=== PATIENT | female | born 1930 | race Caucasian/White ===

== ENCOUNTER 2017-05-16 07:51 | Day surgery (SDC) | payer OTHER ==
[~2017-05-16] VITALS: Ht 160 cm; Wt 79.2 kg
[~2017-05-16 07:51] MED LIST: CIPR250T2 PO; ECASA PO; LEVO.1 PO; LEVO100T4 PO; OMEP20CA5 PO; OXYB5TAB PO; OXYC-360 PO; SIMV10 PO; SPIR25; SPIR25TA PO; STOO100C PO; VESI5TAB PO; ZOCO80TA PO; ZOFR8TAB PO
[2017-05-16] MEDS ORDERED: IOHEXOL 350 MG/ML 50 ML BTL (for Cath Lab) OTHER ONE (07:52)
[2017-05-16] MEDS ORDERED: SIMV40TA PO (08:45)
[2017-05-16] MEDS ORDERED: TEMA15CA PO (08:45)
[2017-05-16] MEDS ORDERED: SPIR25TA PO (08:45)
[2017-05-16] MEDS ORDERED: LEVO100T5 PO (08:45)
[2017-05-16] MEDS ORDERED: LISI-519 PO (08:45)
[2017-05-16] MEDS ORDERED: MECL-62 PO (08:45)
[2017-05-16] MEDS ORDERED: OXYB5TAB10 PO (08:45)
[2017-05-16] MEDS ORDERED: ASPI325T PO (08:45)
[2017-05-16 08:47] VITALS: BP 148/72; PULSE 73; RESP 16; TEMP 98.2; O2SAT 95
[2017-05-16 08:52] LABS: AUTOMATED NEUTROPHIL # 4.9 TH/MM3 (1.8-7.7); BASOPHIL % 0.3 % (0.0-2.0); EOSINOPHIL # 0.2 TH/MM3 (0-0.4); EOSINOPHIL % 2.6 % (0.0-4.0); HEMATOCRIT 38.4 % (35.0-46.0); HEMO FLAGS DIFF FINAL; LYMPH % 23.8 % (9.0-44.0); LYMPHOCYTE # 1.9 TH/MM3 (1.0-4.8); MEAN CELL VOLUME 85.9 FL (80.0-100.0); MEAN CORPUSCULAR HEMOGLOBIN 28.4 PG (27.0-34.0); MONO % 9.9 % (0.0-8.0); NEUT % 63.4 % (16.0-70.0); PLATELET COUNT 150 TH/MM3 (150-450); RED BLOOD COUNT 4.47 MIL/MM3 (4.00-5.30); RED CELL DISTRIBUTION WIDTH 13.8 % (11.6-17.2); WHITE BLOOD COUNT 7.8 TH/MM3 (4.0-11.0)
[2017-05-16 08:58] LABS: BACTERIA, URINE MANY /hpf; BLOOD, URINE NEG (NEG); COMMENT (UR) CULTURE INDICATED; CULTURE IF INDICATED CULTURE INDICATED; GLUCOSE,URINE NEG (NEG); KETONE, URINE NEG (NEG); MUCUS URINE FEW /lpf (OCC); NITRITE,URINE POS (NEG); SQUAMOUS EPITHELIAL CELL URINE 4 /hpf (0-5); TRANSITIONAL EPI CELLS, URINE <1 /hpf; URINE COLOR LIGHT-YELLOW (YELLW/STRAW)
[2017-05-16 09:03] LABS: APTT (PATIENT) 29.7 SEC (24.3-30.1); INTERNATIONAL NORMALIZED RATIO 1.1 RATIO; PROTHROMBIN TIME - PATIENT 12.7 SEC (9.8-11.6)
[2017-05-16 09:15] LABS: BICARBONATE 24.6 MEQ/L (21.0-32.0); POTASSIUM 4.3 MEQ/L (3.5-5.1)
[2017-05-16] MEDS ORDERED: diphenhydrAMINE HCL 50 MG CAP PO SCH (09:15)
[2017-05-16] MEDS ORDERED: NS 1000P @30 MLS/HR (KVO) IV SCH (09:15)
--- NOTE | 2017-05-16 10:09 | RADRPT ---
EXAM DATE/TIME: 05/16/2017 09:48 [place] COMPARISON: No previous studies available for comparison. INDICATIONS : Preoperative chest X-Ray. MEDICAL HISTORY : None. SURGICAL HISTORY : None. ENCOUNTER: Subsequent ACUITY: 3 days PAIN SCORE: 0/10 LOCATION: Bilateral chest FINDINGS: The lungs are clear without infiltrate, nodule, or mass. There is no appreciable pleural effusion fo r technique. Heart and mediastinum are unremarkable. Degenerative changes and hypertrophic changes a re seen within the disc space and facets of the thoracic spine. CONCLUSION: No acute cardiopulmonary disease. Rafael Douglas MD on May 16, 2017 at 10:07 Board Certified Radiologist. This report was verified electronically.
--- NOTE | 2017-05-16 11:14 | EKG ---
Date Performed: 05/16/2017 Time Performed: 09:16:34 PTAGE: 86 years EKG: Sinus rhythm . rSr'(V1) - probable normal variant Normal ECG PREVIOUS TRACING : 03/26/2011 19.21 No significant change from previous tracing noted. DOCTOR: Deepak Velazco Interpretating Date/Time 05/16/2017 11:13:49
[2017-05-16] MEDS ORDERED: SODIUM CHLOR 0.9% 1000 ML INJ 1,000 ML IV SCH (11:20)
[2017-05-16] MEDS ORDERED: BACITRACIN OINT 0.9 GM PKT TOP ONE (11:30)
[2017-05-16] MEDS ORDERED: ONDANSETRON HCL 4 MG/2 ML VIAL IV PUSH PRN (11:30)
[2017-05-16] MEDS ORDERED: ATROPINE SULFATE 1 MG/ML VIAL IV PUSH PRN (11:30)
[2017-05-16] MEDS ORDERED: LIDOCAINE HCL 1% 50 ML VIAL INFIL PRN (11:30)
[2017-05-16] MEDS ORDERED: MISC INFORMATION XX ONE (11:30)
--- NOTE | 2017-05-16 11:42 | CATHPROC ---
[facility] HIS Report Study Information Study Number Admission Scheduled Start Study Start [id number] May 16 2017 7:51AM 05/16/2017 May 16 2017 10:19AM [facility] Cardiac Catheterization Admit Source Facility Department Other [facility] - [facility] Physician and Clinical Staff Initial Pk Izaguirre Marble Ceiling InstallerViki Gray,SUDHAKAR Marble Ceiling Installer Caio DE LA FUENTE, William Other Rolf, Garrison,RT(R) Recorder Katherine Lopez,BIOMEDICAL SCIENTIST TECH2 Mary Lou Muir,RT(R) Procedures Performed Procedure Location (Site) Vessel Name Coronary Angiograms LCA Left Coronary Coronary Angiograms RCA Right Coronary Equipment Time Manager Home Improvement Description Size Mfg Part Number Used/Scraped TRANSDUCER, TRUWAVE [id number] 10:58 VIDALES OLVERA * Used W/STOCKODILIACK *[id number] 11:18 C[employer] VASCADE, FR5 CLOSURE SYSTEM FR 5 Used *[id number]-502-10.0- INTRODUCER SET, 11:06 [employer] FR 5 SC-NT-U-SST Used MICROPUNCTURE, STIFFENED *[id number] 534-520T *[id number] 534-521T *[id number] 534-521T *[id number] 10:58 [employer] PACK, CCL CUSTOM * Used *[id number] 10:58 [employer] SUPPORT, ARTERIAL ADULT 55061 *[id number] Used BAND, RADIAL COMPRESSION TR [id number] 11:18 [employer] MEDICAL 24CM Used SHORT 24 *[id number] 10:58 epicurio WIRE, 3MMJ .035 180CM 180CM Used *[id number] 10:49 epicurio WIRE, EXCHANGE 260CM 3MMJ 260CM Used *[id number] 10:58 NAMIC MANIFOLD, 4 PORT * Used *[id number] 10:58 [employer] OMNIPAQUE, 350 MG, 150ML 150ML [id number] Used [id number] 10:58 [employer],WARM AIR CCL * Used *[id number] 11:05 TER[employer] SHEATH, FR5 TERUMO (10CM) FR 5 Used *[id number] SHEATH, FR6 TRANSRADIAL [id number] 10:58 [employer]UM[employer] MEDICAL FR 6 Used SLENDER 10CM *[id number] Equipment Model, Serial, Lot Number and Expiration Data Description Model Number Serial Number Lot Number Expiration Date INTRODUCER SET, [id number] 04-07-2020 MICROPUNCTURE, STIFFENED History: Current Medications Medication Dosage/Unit Route Frequency Last Date/Time Taken ASA Synthroid LISINOPRIL Statins (any) History: Allergies Allergy Reaction codeine NAUSEA History: Risk Factors Family History of Hypertension Dyslipidemia Previous SC Previous Heart Failure Premature CAD Yes Yes No No No Prior Valve Prior PCI Prior CABG Surgery No No No Cerebrovascular Peripheral Artery Chronic Lung On Dialysis Diabetes Disease Disease Disease No Yes Yes No No History: Symptoms/Diagnosis Selection Items SOB History: Stress Tests Stress or Imaging Studies Performed No History: Other Current Smoker Method Quit Packs a Day Years Used Pack Years No Cigarettes 9 Years Ago 1 35 35 Labs Hgb (g/dl) Hct (%) WBC (l/cumm) Platelets (thousands) 11.60-17.00 35.00-51.00 4.00-11.00 150.00-450.00 12.7 38.4 7.8 150 Glucose (mg/dl) BUN (mg/dl) Creatinine (mg/dl) BUN:Creatinine (1:x) 74.00-106.00 7.00-18.00 0.50-1.30 10.00-20.00 94 27 0.7 38.6 Na (meq/l) K (meq/l) Cl (meq/l) CO2 (mmol/L) Ca (mg/dl) 136.00-145.00 3.50-5.10 98.00-107.00 21.00-32.00 8.50-10.10 139 4.3 105 24.6 8.7 PT (sec) PTT (sec) INR (PTT:PT) 9.80-11.60 24.30-30.10 0.90-1.10 12.7 29.7 1.1 CPK-MB (ng/ML) 0.50-3.60 Not Drawn Medication Medication Total Dose (Bolus/Oral) Medication Total Dosage/Unit 1% XYLOCAINE 40 mL FENTANYL 25 mcg RADIAL COCKTAIL 5 mL (Bolus) VERSED 1 mg Medications (Bolus/Oral) Medication Time Given Dosage/Unit Administered By Reason VERSED 05/16/2017 10:51:22 AM 1 mg Viki Madden 1 mg VERSED given in lab by Chano, Viki, RN in Left Antecubital via Peripheral IV. FENTANYL 05/16/2017 10:52:50 AM 25 mcg Viki Madden 25 mcg FENTANYL given in lab by Viki Madden, SUDHAKAR in Left Antecubital via Peripheral IV. Ordered by Pk Ramos. 1% XYLOCAINE 05/16/2017 10:56:19 AM 20 mL Johnson-Julian Pk 20 mL 1% XYLOCAINE given in lab by Pk Ramos in Right Radial via Subcutaneous. Ntg 200mcg Verapamil 2.5mg Heparin RADIAL COCKTAIL 05/16/2017 10:59:53 AM 5 mL (Bolus) Johnson-Julian Pk 2500U 5 mL (Bolus) RADIAL COCKTAIL given in lab by Pk Ramos in Right Radial via Radial. Using NaCl .9. Ordered by Pk Ramos. Reason: Ntg 200mcg Verapamil 2.5mg Heparin 2500U. 1% XYLOCAINE 05/16/2017 11:05:37 AM 20 mL Elizabeth-Julian Pk 20 mL 1% XYLOCAINE given in lab by Pk Ramos in Right Groin via Subcutaneous. Ordered by Pk Castillo. Initial Case Assessment Cardiovascular HR Rhythm NIBP Chest Pain 71 sr 145/53 0 Circulatory - Right Pulses Dorsalis Pedis Femoral Radial 1 2 2 Scale (0,1,2,3,4,d) Circulatory - Left Pulses Dorsalis Pedis Femoral Radial 1 2 Scale (0,1,2,3,4,d) Neurological State Oriented to time-place- Alert Moves all extremities person Respiration - General SpO2 (%) 96 Final Case Assessment Cardiovascular HR Rhythm NIBP Chest Pain 67 sr 98/45 0 Circulatory - Right Pulses Dorsalis Pedis Femoral Radial 2 2 2 Scale (0,1,2,3,4,d) Circulatory - Left Pulses Dorsalis Pedis Femoral Radial 2 2 Scale (0,1,2,3,4,d) Neurological State Oriented to time-place- Alert Moves all extremities person Respiration - General Respiration Rate SpO2 (%) (B/min) 13 97 Chronological Log Time Study Chronological Log 10:18:48 Patient arrived via Bed. 10:18:49 Patient Name, D.O.B, / Armband Verified By R.N. 10:18:49 Consent signed by the physician and the patient and verified by the [facility] staff. 10:18:51 Pre-op and post- op instructions given; patient acknowledges understanding of instructions. 10:18:54 Presedation assessment performed by [employer] [facility] RN. 10:19:08 Patient has been NPO for More than 6Hrs. 10:19:09 Skin Breakdown-left reyes bruise noted 10:19:10 Patient Warmer Placed on the Table. 10:19:11 Nila Prominences Protected 10:19:13 A # 20 IV was noted in the Antecubital (left). Grade = patent 10:19:19 History and physical on the chart or being dictated. 10:23:20 MD arrived. Vitals capture started with the following parameters, Patient=Adult, Interval=5 min, Initial Pr rotydq=716 mmHg, 10:28:41 Deflation Rate=5 mmHg, Cuff placed on Left Arm 10:29:57 HR=72 bpm, ABLY=997/53 mmhg, SpO2=96.0 %, Resp=16 B/min, Pain=0, Navarro=2 Assessment: Initial Case, HR=71 BPM, Rhythm=sr, IMNR=346/53 mmhg, Chest Pain=0 Right Pulses: Mich Ped=1, Femoral=2, Radial=2 10:30:15 Left Pulses: Mich Ped=1, Femoral=2 Neurological: State=Alert, Ox3, LEONE Respiration: SpO2=96 % 10:33:53 Reference ECG taken 10:34:25 HR=77 bpm, RFNV=067/65 mmhg, SpO2=97.0 %, Resp=18 B/min 10:39:28 HR=70 bpm, SLQN=852/60 mmhg, SpO2=96.0 %, Resp=18 B/min 10:43:49 Pressure channel 1 zeroed. 10:44:27 HR=72 bpm, TOLH=077/57 mmhg, SpO2=96.0 %, Resp=20 B/min 10:49:28 HR=69 bpm, LMOP=438/59 mmhg, SpO2=96.0 %, Resp=18 B/min 10:51:22 1 mg VERSED given in lab by Viki Madden, RN in Left Antecubital via Peripheral IV. 25 mcg FENTANYL given in lab by Viki Madden, SUDHAKAR in Left Antecubital via Peripheral IV. Orde red by Rachel, 10:52:50 Pk. 10:54:30 HR=71 bpm, CSMO=129/63 mmhg, SpO2=96.0 %, Resp=20 B/min Time Out. Correct patient, correct procedure,correct physician, ,power injector loaded or not l oaded with contrast with 10:56:15 surgical team present. Time Out Concurred by MD, individual staff and QUICK SKETCH ARTIST in procedure :56:18 Case Start 10:56:19 20 mL 1% XYLOCAINE given in lab by Rachel, Pk in Right Radial via Subcutaneous. 10:59:04 Access site was Radial Artery. right 10:59:29 HR=76 bpm, NVYH=066/60 mmhg, SpO2=94 %, Resp=16 B/min A SHEATH, FR6 TRANSRADIAL SLENDER 10CM FR 6 was advanced into the Fem Art (right) using the Per cutaneous 10:59:37 technique. 5 mL (Bolus) RADIAL COCKTAIL given in lab by Rachel, Pk in Right Radial via Radial. Usin g NaCl .9. Ordered by 10:59:53 Jacek Ramosro. Reason: Ntg 200mcg Verapamil 2.5mg Heparin 2500U. A JR 4.0 INFINITI CATHETER FR 5 was advanced over a wire. OMNIPAQUE, 350 MG, 150ML 150ML was us ed for 11:00:28 injections. Recorded Pressure: Ao, HR=79, Condition=Condition 1 11:01:43 (Aorta) Ao 92/48/68 11:03:36 Unable to cannulate LCA. Catheter was removed 11:04:24 HR=59 bpm, NIBP=73/36 mmhg, SpO2=94 %, Resp=10 B/min 11:04:45 NIBP STAT measurement started. 11:05:01 Aborting radial approach. 11:05:15 HR=58 bpm, NIBP=76/40 mmhg, SpO2=94 %, Resp=15 B/min 20 mL 1% XYLOCAINE given in lab by Rachel, Pk in Right Groin via Subcutaneous. Ordered b nina Ramos, 11:05:37 Pk. 11:05:48 Access site was Right Femoral Artery. A INTRODUCER SET, MICROPUNCTURE, STIFFENED FR 5 was advanced into the Fem Art (right) using the 11:05:55 Percutaneous technique. A SHEATH, FR5 TERUMO (10CM) FR 5 was exchanged in the Fem Art (right). This was necessary in or marija to 11:05:59 accomodate a larger catheter. 11:06:26 An injection in the Fem Art (right) was made through the SHEATH, FR5 TERUMO (10CM) FR 5. A JR 4.0 INFINITI CATHETER FR 5 was advanced over a wire. OMNIPAQUE, 350 MG, 150ML 150ML was us ed for 11:07:14 injections. Recorded Pressure: Ao, HR=58, Condition=Condition 1 11:08:18 (Aorta) Ao 98/43/65 11:08:31 The RCA was injected and visualized at various angles. OMNIPAQUE, 350 MG, 150ML 150ML used . After removing the current catheter a JL 4.0 INFINITI CATHETER FR 5 was advanced over a WIRE, 3 MMJ .035 180CM 11:08:53 180CM. After removing the current catheter a JL 5.0 INFINITI CATHETER FR 5 was advanced over a WIRE, 3 MMJ .035 180CM 11:09:33 180CM. Unable to cannulate LCA 11:09:49 HR=74 bpm, ENCX=627/50 mmhg, SpO2=94 %, Resp=13 B/min 11:10:36 The LCA was injected and visualized at various angles. OMNIPAQUE, 350 MG, 150ML 150ML used . 11:14:24 HR=76 bpm, LEOS=121/55 mmhg, SpO2=95 %, Resp=15 B/min 11:15:57 Catheter was removed VASCADE, FR5 CLOSURE SYSTEM FR 5 placement in the Fem Art (right) Hematoma noted, holding manua l pressure, 11:17:02 pt c/o rt groin and right radial site. 11:18:42 Case End 11:19:27 HR=73 bpm, ESSW=833/51 mmhg, SpO2=95.0 %, Resp=11 B/min 11:24:26 HR=67 bpm, TVCB=281/53 mmhg, SpO2=97.0 %, Resp=13 B/min 11:26:00 Activated Clotting Time Drawn 11:29:23 HR=65 bpm, NIBP=98/45 mmhg, SpO2=98.0 %, Resp=24 B/min 11:35:23 ACT (Normal Range 90-180) = 229 Radial Compression Device Used. 11 mLs of air placed in BAND, RADIAL COMPRESSION TR SHORT 24 24 CM. Affected 11:35:42 hand 96 % O2 saturation. 11:36:54 Hematoma resolved, Sterile dressing applied to right groin site 11:37:31 Cine recording checked. Assessment: Final Case, HR=67 BPM, Rhythm=sr, NIBP=98/45 mmhg, Chest Pain=0 Right Pulses: Mich Ped=2, Femoral=2, Radial=2 11:42:37 Left Pulses: Mich Ped=2, Femoral=2 Neurological: State=Alert, Ox3, LEONE Respiration: Resp=13 B/min, SpO2=97 % 11:42:41 Patient moved to bed 11:43:50 Patient transported to DOCU. End Study - Contrast Media Used In Study Contrast Total Opened (mL) Total Used (mL) Total Wasted (mL) Omnipaque 40 40 0 End Study - Maximum Contrast Load Max Contrast Load (mL) 565.6 End Study - Radiation Exposure Fluoro Time (minutes) 6.2 End Study - Sheaths Sheaths Pulled By Sheath Hold Time (min) Pk Ramos End Study - Patient Disposition Complications Transferred To Interventional Outcome No Telemetry Bed No attempt made
--- NOTE | 2017-05-16 12:24 | ECHRPT ---
Indication: CONCLUSIONS Normal left ventricular size and wall thickness. The left ventricular systolic function is normal wi th an estimated ejection fraction in the range of 60-65%. Left ventricular diastolic function parameters a re normal. Normal left ventricular size. Moderate concentric left ventricular hypertrophy. No regional wall motion abnormalities are present. Mitral annular calcification is present. Mild mitral valve regurgitation. Moderate thickening of the mitral valve leaflets. Severe thickening of the aortic valve leaflets. Diffuse calcification of the aortic valve. Severe aortic valve stenosis. Moderate aortic valve regurgitation. Aortic valve area is 0.55 cm. Aortic valve mean gradient is 64 mmHg. There is trace tricuspid valve regurgitation. The estimated pulmonary arterial pressure is 28 mmHg. BP: / HR: Rhythm: Sinus MEASUREMENTS (Male / Female) Normal Values Technical Quality:Good 2D ECHO LVOT Diameter 2.0 cm M-MODE LV Diastolic Diameter MM 3.9 cm 4.2 - 5.9 / 3.9 - 5.3 cm LV Systolic Diameter MM 2.5 cm LV Ejection Fraction MM Teich 66.5 % IVS Diastolic Thickness MM 1.3 cm 0.6 - 1.0 / 0.6 - 0.9 cm LVPW Diastolic Thickness MM 1.3 cm 0.6 - 1.0 / 0.6 - 0.9 cm LV Relative Wall Thickness MM 0.7 0.24 - 0.42 / 0.22 - 0.42 LV Mass Index MM 97.1 g/m 49 - 115 / 43 - 95 g/m Aortic Root Diameter MM 2.3 cm LA Systolic Diameter MM 3.3 cm LA Ao Ratio MM 1.4 AV Cusp Separation MM 0.8 cm DOPPLER AV Peak Velocity 521.0 cm/s AV Peak Gradient 108.6 mmHg AV Mean Gradient 64.0 mmHg AV Velocity Time Integral 150.5 cm AI Peak Velocity 445.0 cm/s AI Peak Gradient 79.2 mmHg AI Pressure Half Time 385.5 ms LVOT Peak Velocity 102.0 cm/s LVOT Peak Gradient 4.2 mmHg LVOT Velocity Time Integral 26.2 cm AV Area Cont Eq vti 0.5 cm AV Area Cont Eq pk 0.6 cm MV Peak Velocity 157.0 cm/s MV Peak Gradient 9.9 mmHg MV Mean Velocity 88.1 cm/s MV Mean Gradient 4.0 mmHg MV Area PHT 2.8 cm Mitral E Point Velocity 105.0 cm/s Mitral A Point Velocity 162.0 cm/s Mitral E to A Ratio 0.6 LV E' Lateral Velocity 4.1 cm/s Mitral E to LV E' Lateral Ratio 25.7 LV E' Septal Velocity 5.0 cm/s Mitral E to LV E' Septal Ratio 21.1 TR Peak Velocity 230.0 cm/s TR Peak Gradient 21.2 mmHg PV Peak Velocity 66.4 cm/s PV Peak Gradient 1.8 mmHg FINDINGS LEFT VENTRICLE Normal left ventricular size and wall thickness. The left ventricular systolic function is normal wi th an estimated ejection fraction in the range of 60-65%. Left ventricular diastolic function parameters a re normal. Normal left ventricular size. Moderate concentric left ventricular hypertrophy. No regional wall motion abnormalities are present. RIGHT VENTRICLE Normal right ventricular size and systolic function. LEFT ATRIUM The left atrial size is normal. RIGHT ATRIUM The right atrial size is normal. ATRIAL SEPTUM Normal atrial septal thickness without atrial level shunting by limited color doppler interrogation. AORTA The aortic root and proximal ascending aorta are normal in size on limited imaging. MITRAL VALVE Mitral annular calcification is present. Mild mitral valve regurgitation. Moderate thickening of the mitral valve leaflets. AORTIC VALVE Severe thickening of the aortic valve leaflets. Diffuse calcification of the aortic valve. Severe aortic valve stenosis. Moderate aortic valve regurgitation. Aortic valve area is 0.55 cm. Aortic valve mean gradient is 64 mmHg. TRICUSPID VALVE There is trace tricuspid valve regurgitation. The estimated pulmonary arterial pressure is 28 mmHg. PULMONARY VALVE The pulmonary valve is not well visualized. VESSELS The inferior vena cava is normal in size. PERICARDIUM No pericardial effusion. Pk Ramos MD (Electronically Signed) Final Date:16 May 2017 12:23
--- NOTE | 2017-05-16 12:53 | MA ---
cc: DANA SPICER DATE: 05/16/2017. PROCEDURE PERFORMED: 1. Left heart catheterization. 2. Selective right and left coronary angiography, left common femoral artery angiography. INDICATIONS FOR THE PROCEDURE: Preoperative evaluation for aortic valve replacement. DESCRIPTION OF THE PROCEDURE IN DETAIL: Consent signed. The patient was brought into the cardiac catheterization laboratory in a fasting state. The right wrist and groin were prepped and draped in sterile fashion using 1% lidocaine for local anesthesia. A micropuncture and 6-[place] sheath was inserted in the right radial artery. Antispasmodic cocktail given then selective right coronary artery angiography was tried however it was not successful even tortuosity of the ascending aorta and thus the approach was changed to a right femoral approach. Then using 1% lidocaine and a micropuncture kit a 5-[place] sheath was inserted into the right common femoral artery. A right common femoral artery angiography was performed to confirm for position of the sheath. Then selective right and left coronary angiography was performed with a JR-4 and JL-5 diagnostic catheters. Angiography was taken in multiple views. The patient tolerated the procedure well without complications. Estimated blood loss less than 30 mL. Total contrast used was 50 cc. The right groin access site was closed with a basket device. The right wrist was closed with a TR band. RESULTS: 1. Aortic pressure was 98/43 with a mean of 65. ANGIOGRAPHY: 1. Right coronary artery: The right coronary artery is a dominant vessel. It has no significant coronary artery disease. It is mildly calcified and has a mid 30% lesion. The PDA and PLB branches are patent. 2. Left main: The left main is short and patent with no obstructive coronary artery disease. 3. Left circumflex: The left circumflex artery is giving off three OM vessels. There is mild calcification in the circumflex however the rest of the vessel is patent with DEANGELO III flow and no obstructive coronary artery disease. 4. Left anterior descending: The left anterior descending is a transapical vessel. It has one prominent diagonal vessel. The LAD and the diagonals are patent with DEANGELO III flow and no obstructive coronary artery disease. CONCLUSIONS: 1. Nonobstructive coronary artery disease. 2. Severe symptomatic aortic stenosis. RECOMMENDATIONS: 1. The patient will continue the TAVR workup. 2. TAVR CTA, PFTs, STS score and frailty and she will be seen by CT surgery 3. DOCU for post catheterization care and if stable, 4. Discharged home today. MD CYRUS Patel/JORDAN /11:22 AM /12:33 PM [place]
--- NOTE | 2017-05-16 13:41 | MB ---
cc: DANA SPICER SOHIT K. MD DATE OF CONSULTATION 05/16/[address] Dana Spicer REASON FOR CONSULTATION Aortic stenosis HISTORY Mrs. Mera is a very pleasant 86-year-old lady with a known history of hypertension, progressive symptomatic, severe aortic stenosis, peripheral artery disease, thrombocytopenia, and senile her purpura who presents with progressive symptoms of shortness of breath with minimal exertion. The patient has been evaluated and has undergone further workup including an echocardiogram which revealed severe aortic stenosis with peak gradient of 103 mmHg, mean gradient of 52 mmHg and calculated valve area 0.7 cm2. She also underwent a cardiac catheterization today which revealed nonocclusive right coronary disease with 40% stenosis. I am now being consulted for surgical opinion and evaluation for open versus TAVR surgical replacement. At the present time, she is hemodynamically stable and comfortable, however, with minimal exertion, she gets easily short of breath. PAST MEDICAL HISTORY Significant for: 1. Aortic stenosis as described above. 2. Hyperlipidemia 3. Hypothyroidism 4. Peripheral arterial disease 5. Senile purpura 6. Thrombocytopenia 7. Hypertension PAST SURGICAL HISTORY Remarkable for shoulder surgery. MEDICATIONS ON ADMISSION Include: 1. Aspirin 2. Levothyroxine 3. Lisinopril 4. Meclizine 5. Oxybutynin 6. Simvastatin 7. Spironolactone 8. Temazepam ALLERGIES THE PATIENT REPORTS ALLERGIES TO CODEINE. FAMILY HISTORY Noncontributory SOCIAL HISTORY Denies any history of alcohol use, or illicit drug use. She is a former smoker and quit in 2007. REVIEW OF SYSTEMS As above, all other parameters negative. PHYSICAL EXAM On physical examination today she is 5 foot 3 inches tall, weighs 177 pounds. VITAL SIGNS: Blood pressure 148/72 with a heart rate of 72 and regular, respiratory rate is 16 and she is afebrile. HEENT: Normocephalic, atraumatic. Pupils are round and reactive. Extraocular muscles intact. NECK: No cervical lymphadenopathy, carotid bruits or JVD. CARDIOVASCULAR: Regular rate rhythm. Normal S1-S2 without gallops or rubs. She does have a 04/06 systolic ejection murmur best heard at the right parasternal border. LUNGS: Clear to auscultation bilaterally with good exchange. ABDOMEN: Soft, nontender, and nondistended with no active bowel sounds. No hepatosplenomegaly. EXTREMITIES: Bilateral pedal pulses are nonpalpable, however, the feet are warm and with good capillary refill. NEUROLOGIC: Intact with no focal deficits. SKIN: Intact. IMPRESSION 1. Severe symptomatic aortic stenosis. 2. Congestive heart failure [place] [employer] classification II 3. Hypothyroidism 4. Hypertension 5. Hyperlipidemia 6. Senile purpura 7. Thrombocytopenia PLAN The clinical, angiographic, as well as echo findings were discussed in detail with the patient today. Therapeutic options available including surgical versus percutaneous valve therapy was discussed. Given her STS mortality score of 3.78% with a morbidity or mortality of 17.5%, her advanced age, as well as her medical comorbidities, I think she will maximally benefit from TAVR consideration. She is at intermediate risk for surgical therapy. To that effort, we will proceed with a TAVR workup including a CTA, as well as a second opinion from Dr. Michel. She will follow up with him on the outpatient basis for a second opinion and will decide on a definitive TAVR day depending upon the results of all the pending studies. Thank you for allowing me to participate in the care of this patient. Shyann CARDENAS /12:23 PM /1:16 PM MTDRamon
--- NOTE | 2017-05-21 09:31 | RSPPFT ---
DATE OF PROCEDURE: 05/16/17 COMMENTS: Spirometry with FVC of 2.4, FEV1 of 1.7, FEV1/FVC ratio at 72%. Post-bronchodilator study was not performed. IMPRESSION: 1. Moderately severe airways obstruction.
== END 2017-05-16 16:15 | disposition home or self-care (01) ==
LOC: HDOC 07:51 → HDIC 07:52 → HDOC 16:15
PROVIDERS: ATTEND Radiology Vascular & Interventional Radiology
DX: I35.0 Nonrheumatic aortic (valve) stenosis (principal); I25.10 Atherosclerotic heart disease of native coronary artery without angina pectoris; I73.9 Peripheral vascular disease, unspecified; D69.6 Thrombocytopenia, unspecified; B96.20 Unspecified Escherichia coli [E. coli] as the cause of diseases classified elsewhere; E03.9 Hypothyroidism, unspecified; D69.2 Other nonthrombocytopenic purpura; I50.9 Heart failure, unspecified; I11.0 Hypertensive heart disease with heart failure; Z87.891 Personal history of nicotine dependence; Z79.82 Long term (current) use of aspirin; E78.5 Hyperlipidemia, unspecified; Z79.899 Other long term (current) drug therapy
CPT/HCPCS: 71020; 80048; 81001; 82040; 85002; 85025; 85610; 85730; 86850; 86900; 86901; 87077; 87086; 87186; 87641; 93005; 93306; 93454; 94010; C1760; C1769; C1893; G0269; J1644; J2250; J3010; Q9967

== ENCOUNTER → 2017-06-05 | Outpatient (CLI) | payer SELFPAY ==
[~2017-06-05] MED LIST changes: +ASPI325T PO; +ASPI81CH25 PO; -CIPR250T2 PO; +IOHEXOL 350 MG/ML 10 ML VIAL (for RAD DIAG) IVCONTRAST ONE; -LEVO.1 PO; +LEVO100T5 PO; +LISI-519 PO; +MECL-62 PO; -OMEP20CA5 PO; +OXYB5TAB10 PO; -OXYC-360 PO; +PLAV75TA29 PO; +SIMV40TA PO; -SPIR25; -STOO100C PO; +TEMA15CA PO; -VESI5TAB PO; -ZOCO80TA PO; -ZOFR8TAB PO
--- NOTE | 2017-06-06 10:54 | RADRPT ---
EXAM DATE/TIME: 06/05/2017 17:15 [facility] COMPARISON: No previous studies available for comparison. INDICATIONS : Evaluate for valve replacement surgery. IV CONTRAST: 100 cc Omnipaque 350 (iohexol) IV RADIATION DOSE: 43.36 CTDIvol (mGy) MEDICAL HISTORY : Cardiovascular disease. Hypertension. SURGICAL HISTORY : None. ENCOUNTER: Initial ACUITY: 1 day PAIN SCALE: 0/10 LOCATION: chest TECHNIQUE: Volumetric scanning was performed using a multi-row detector CT scanner. The data was post processed with a variety of visualization algorithms including full volume maximum intensity projection, multi -planar sliding thin slab reformation, curved planar reformation, and surface rendering techniques. Using automated exposure control and adjustment of the mA and/or kV according to patient size, radiat ion dose was kept as low as reasonably achievable to obtain optimal diagnostic quality images. DIC OM format image data is available electronically for review and comparison. FINDINGS: CARDIAC: The coronary system is right dominant. Coronary artery calcifications are present 3There are no microcalcifications. There is no pericardial effusion AORTIC ROOT/VALVE: 3 cusps are evident with calcifications. The aortic root measures 3.2 CM. Mid thoracic aorta measures 2.4 with no calcifications. 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 No evidence of aneurysm, mural thrombus, dissection, mural calcification, or stenosis. ABDOMINAL AORTA: No evidence of aneurysm, mural thrombus, dissection, mural calcification, or stenosis. CELIAC ARTERY: Celiac artery is widely patent. SMA: Superior mesenteric artery is widely patent. RIGHT RENAL ARTERY: Right renal artery is widely patent. LEFT RENAL ARTERY: Left renal artery is widely patent. RIGHT COMMON ILIAC: No evidence of aneurysm, mural thrombus, dissection, mural calcification, or stenosis. The common fe moral measures 7. LEFT COMMON ILIAC: No evidence of aneurysm, mural thrombus, dissection, mural calcification, or stenosis. The common fe moral measures 6. THORAX: There is minimal parenchymal scarring in the bases but no evidence of nodule. ABDOMEN: The liver and spleen are normal in size and no focal defects are identified. There are multiple stone s within the gallbladder without wall thickening or pericholecystic fluid the largest measuring 5 mm PELVIS: Examination of the pelvis demonstrates no evidence of free fluid or pelvic mass. No abnormally enlarg ed inguinal or retroperitoneal lymph nodes are present. The bladder is unremarkable. There is diverti culosis without evidence of diverticulitis. CONCLUSION: 1. Vascular measurements as above 2. Cholelithiasis 3. 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 This report was verified electronically.
== END ==
LOC: HRAD 16:09
PROVIDERS: ATTEND Radiology Vascular & Interventional Radiology
DX: I25.10 Atherosclerotic heart disease of native coronary artery without angina pectoris (principal); I10 Essential (primary) hypertension
CPT/HCPCS: 74174; Q9967

== ENCOUNTER 2017-06-11 05:16 | Inpatient (IN) | payer OTHER, MEDICARE ==
[2017-06-11] VITALS (9 sets, daily range): BP systolic 105–165; BP diastolic 44–76; PULSE 70–81; RESP 14–18; TEMP 94.4–99.2; O2SAT 94–99
[~2017-06-11] VITALS: Ht 160 cm; Wt 82.0 kg
[~2017-06-11 05:16] MED LIST changes: -ASPI81CH25 PO; -IOHEXOL 350 MG/ML 10 ML VIAL (for RAD DIAG) IVCONTRAST ONE; -PLAV75TA29 PO
[2017-06-11] MEDS ORDERED: METOPROLOL TARTRATE 25 MG TAB PO PRN (06:00)
[2017-06-11] MEDS ORDERED: SODIUM CHLORID 0.9% 500 ML IV SCH (06:00)
[2017-06-11] MEDS ORDERED: ASPIRIN 325 MG TAB PO ONE (06:00)
[2017-06-11] MEDS ORDERED: CHLORHEXIDINE GLUCONATE 2 % 1 PACK (2 CLOTHS) TOPICAL PRN (06:00)
[2017-06-11] MEDS ORDERED: INSULIN HUMAN REGULAR 1,000 UNITS/10 ML VIAL SQ PRN (06:00)
[2017-06-11] MEDS ORDERED: POVIDONE IODINE 5% (ANTISEPSIS KIT) 4 APPLICATIONS EACH NARE PRN (06:00)
[2017-06-11] MEDS ORDERED: SODIUM CHLORID 0.9% 500 ML IV PRN (06:00)
[2017-06-11] MEDS ORDERED: MUPIROCIN 2% OINT 1 APPLIC/GM SYR NASAL ONE (06:00)
[2017-06-11] MEDS ORDERED: LACTATED RINGER'S 1000 ML IV PRN (06:00)
[2017-06-11] MEDS ORDERED: POVIDONE IODINE 5% (ANTISEPSIS KIT) 4 APPLICATIONS TOPICAL ONE (06:00)
[2017-06-11] MEDS ORDERED: SODIUM CHLOR 0.9% 1000 ML INJ 1,000 ML IV SCH ×2 (06:15→09:46)
[2017-06-11] MEDS ORDERED: CHLORHEXIDINE GLUCONATE 2 % 1 PACK (2 CLOTHS) TOPICAL ONE (06:15)
[2017-06-11 06:16] LABS: AUTOMATED NEUTROPHIL # 2.6 TH/MM3 (1.8-7.7); BASOPHIL % 0.7 % (0.0-2.0); EOSINOPHIL # 0.2 TH/MM3 (0-0.4); EOSINOPHIL % 4.8 % (0.0-4.0); HEMATOCRIT 35.2 % (35.0-46.0); HEMO FLAGS DIFF FINAL; LYMPH % 29.2 % (9.0-44.0); LYMPHOCYTE # 1.5 TH/MM3 (1.0-4.8); MEAN CELL VOLUME 85.8 FL (80.0-100.0); MEAN CORPUSCULAR HEMOGLOBIN 29.3 PG (27.0-34.0); MEAN CORPUSCULAR HGB CONC 34.1 % (32.0-36.0); MONO % 12.4 % (0.0-8.0); NEUT % 52.9 % (16.0-70.0); PLATELET COUNT 135 TH/MM3 (150-450); RED CELL DISTRIBUTION WIDTH 13.9 % (11.6-17.2)
[2017-06-11 06:27] LABS: BICARBONATE 25.8 MEQ/L (21.0-32.0); POTASSIUM 3.7 MEQ/L (3.5-5.1)
[2017-06-11 06:50] LABS: APTT (PATIENT) 30.3 SEC (24.3-30.1); INTERNATIONAL NORMALIZED RATIO 1.2 RATIO; PROTHROMBIN TIME - PATIENT 13.2 SEC (9.8-11.6)
[2017-06-11] MEDS ORDERED: HEPARIN-NS/PF INJ 2,500 ML ONE (06:53)
[2017-06-11] MEDS ORDERED: HEPARIN SODIUM - IV 10,000 UNITS/10 ML VIAL ONE ×2 (07:15→09:30)
[2017-06-11] MEDS ORDERED: HEPARIN SODIUM - SQ 10,000 UNITS/ML VIAL ONE (07:15)
[2017-06-11] MEDS ORDERED: CUSTODIOL HTK IRR SOLN 0 ML ONE (07:16)
[2017-06-11] MEDS: ceFAZolin 2 GM PREMIX 50 ML IV SCH (07:30)
--- NOTE | 2017-06-11 08:39 | MH ---
cc: DANA SPICER DATE OF ADMISSION: 06/11/2017 DATE OF : 1930 REASON FOR ADMISSION Elective replacement of aortic valve. HISTORY OF PRESENT ILLNESS 86-year-old female referred by Dr. Deepak Velazco with past medical history significant for hypertension, hyperlipidemia, peripheral vascular disease, thrombocytopenia, severe hard-of- hearing and severe symptomatic aortic stenosis with preserved ejection fraction. The patient has been experiencing for the last couple of weeks worsening dyspnea on minimal exertion. This dyspnea is also associated with angina. The patient was referred to the [facility] for evaluation. She was fully evaluated by the cardiac team and concluded the patient was intermediate risk for open AVR and a candidate for TAVR. The patient had an echocardiogram showing a preserved ejection fraction of 60% with some LVH, a trileaflet aortic valve which is calcified, aortic valve velocity across the valve of 5.2, mean gradient of 64, and calculated aortic valve area of 0.55. After full evaluation she was deemed a candidate for TAVR and scheduled to undergo TAVR today. REVIEW OF SYSTEMS Negative except for what is mentioned in the HPI. PAST MEDICAL HISTORY 1. Severe symptomatic aortic stenosis. 2. Hypertension. 3. Hypothyroidism. 4. Hyperlipidemia. 5. Peripheral vascular disease. 6. Thrombocytopenia. 7. Severe guan-ni-cooavrg. 8. Chronic diastolic heart failure MEDICATIONS Home medications reviewed. FAMILY HISTORY Noncontributory. SOCIAL HISTORY Denies alcohol use, tobacco abuse or illicit drug use. PHYSICAL EXAMINATION VITAL SIGNS: Temperature 97, respiratory rate 18, heart rate 70 beats per minute, blood pressure 130/40, O2 sats 100% on room air. GENERAL: Awake, alert, oriented x3, in no acute distress. NECK: No JVD. No carotid bruits. HEART: Regular rate and rhythm. She has a 3/6 systolic ejection murmur best heard in the aortic focus. There are no gallops or rubs. LUNGS: Clear to auscultation bilaterally, however, poor inspiratory effort. ABDOMEN: Benign. EXTREMITIES: No cyanosis or edema. Pulses throughout. LABORATORY Creatinine 0.7. H&H of 12.7 and 38.4, platelet count 150. Regarding TAVR evaluation STS score is 3.72, frailty 2/4. EKG: Sinus rhythm with an incomplete right bundle branch block. PFTs: Moderate obstructive airway disease. Echocardiogram: Aortic valve velocity of 5.2, mean gradient of 64, calculated valve area of 0.55, ejection fraction of 60%. There is some AR noted as well as LVH. The aortic valve is a trileaflet aortic valve which is calcified at the leaflets. The left heart cath shows no obstructive coronary artery disease. CTA analysis shows a short annulus diameter of 23.4, a long annulus diameter 26.6 and annular diameter of 496.9, perimeter of 79.4. She has again calcium in the leaflets. There is no LVOT calcification. The aortic valve is a trileaflet valve. The sinus of Valsalva diameter is 30.6. The STA is 25.9. The coronary height on the left is 12.9 and the right coronary height is 16.0. Iliacs: minimal luminal diameter on the right is 5.5 and on the left is 5.6. ASSESSMENT 86-year-old female admitted for elective percutaneous replacement of the aortic valve in the setting of severe symptomatic aortic stenosis, [place] [employer] Class II, acute of chronic diastolic heart failure and angina. Past medical history significant for hypertension, hyperlipidemia, thrombocytopenia and peripheral arterial disease. TAVR work-up mentioned above. The risks and benefits of TAVR include but are not limited to complete heart block needing pacemaker, bleeding, infection, acute kidney injury, stroke, emergent open heart surgery and have been explained to the patient. The patient understands the risks and benefits and is willing to proceed. PLAN Right transfemoral valve access with implantation of a 29 mm Medtronic Evolut valve. MD CYRUS Patel/DEV /7:59 AM /8:11 AM ROLAND
[2017-06-11] MEDS ORDERED: PROTAMINE SULFATE 50 MG/5 ML VIAL ONE (09:02)
[2017-06-11] MEDS ORDERED: IOHEXOL 350 MG/ML 100 ML BTL (for RAD DIAG) IVCONTRAST ONE (09:15)
--- NOTE | 2017-06-11 09:25 | PD.OP ---
cc: Pk Ramos MD; Shyann Shafer MD; Ivett Michel MD; Luis Fernando Spear MD Operative Report Date of Surgery: Jun 11, 2017 Preoperative Diagnosis: (1) Aortic stenosis (2) Diastolic heart failure due to valvular disease Postoperative Diagnosis: same Procedure: Transcatheter aortic valve replacement with a 29 Corevalve Evolut tissue valve Balloon aortic valvuloplasty with a 22 True Balloon Percutaneous right femoral artery access with Perclose closure Percutaneous left femoral and vein access with Perclose closure of the artery Fluoroscopy Diagnostic aortography Anesthesia: Dr. Flores Surgeon: Ivett Michel Co-surgeon - Dr. Johnson Central Service Tech(s): Dr. Rainer Shafer Operation and Findings: The risks, benefits, complications, treatment options, and expected outcomes were discussed with the patient. The possibilities of reaction to medication, pulmonary aspiration, perforation of viscus, bleeding, recurrent infection, the need for additional procedures, failure to diagnose a condition, and creating a complication requiring transfusion or operation were discussed with the patient. The patient concurred with the proposed plan, giving informed consent. The site of surgery properly noted/marked. The patient was taken to the hybrid operating room, identified as [place]serrat Mera and the procedure verified as Transcatheter Aortic Valve Replacement. A Time Out was held and the above information confirmed. Standard monitoring lines and Marroquin catheter were placed. General anesthesia was induced. The patient was prepped and draped in a sterile fashion. Initially, left femoral arterial and venous access was acquired using a Seldinger percutaneous technique. The details of this procedure were dictated under separate note by cardiology. Once a pigtail was positioned in the aortic annulus and a temporary transvenous pacemaker wire was placed in the right ventricular apex and tested, the patient was heparinized such that the ACT was greater than 300 second. The right femoral artery was accessed using a needle followed by a guidewire under fluoroscopic guidance. Perclose devices were deployed for later closure. Serial dilators were used to dilate the right femoral artery to 16 Prydeinig caliber. The Cook sheath was then inserted up to the abdominal aorta. Arch aortography was performed to define the implant view. A balloon aortic valvuloplasty was then performed using a 22 x 6 balloon with the patient being paced at 180 beats per minute. A 29 Corevalve Evolut transcatheter aortic valve was then positioned in the annulus and deployed with the patient being paced at 120 beats per minute. Following deployment, the valve apparatus was withdrawn and arch aortography and REUBEN were performed to assess the valve. The valve had no significant perivalvular leaks. The sheath was withdrawn under direct vision and the right femoral artery was secured with the Perclose devices. The left femoral artery was handled in a similar manner. Protamine was administered. Sterile dressings were placed. At the end of the operation , all sponge, instruments, and needle counts were correct. The patient was transferred to the CICU in stable condition. Findings: 29 Corevalve deployed without incident Implants: 29 Corevalve Complications: none Disposition: To CVICU in stable condition Ivett Michel MD Jun 11, 2017 09:25
--- NOTE | 2017-06-11 09:39 | PD.CONS ---
[facility] Service Critical Care Medicine Consult Requested By Dr. Marshall Reason for Consult medical management of comorbid conditions Primary Care Physician No Primary Care Physician History of Present Illness This is an 86-year-old female with a history of hypertension, hypothyroidism, hyperlipidemia, peripheral vascular disease, thrombocytopenia, and severe aortic stenosis who presents for elective percutaneous transcatheter aortic valve replacement. Her intraoperative procedure was uncomplicated through bilateral groin access. She arrives to the CVICU arousing from anesthesia in stable condition. No additional information is obtainable from the patient due to her arousing from anesthesia and somnolence. Review of Systems ROS Limitations: Clinical Condition, Altered Mental Status ROS Arousing from anesthesia Past Family Social History Allergies: Coded Allergies: codeine (Unverified Adverse Reaction, Intermediate, NAUSEA, 04/22/17) Past Medical History Severe symptomatic aortic stenosis Hypertension Hypothyroidism Hyperlipidemia Peripheral vascular disease Thrombocytopenia Hearing loss Past Surgical History Right knee surgery delivery Reported Medications Aspirin 325 Mg Tab 325 Mg PO DAILY Temazepam 15 Mg Cap 15 Mg PO HS PRN Spironolactone 25 Mg Tab 25 Mg PO DAILY Simvastatin 40 Mg Tab 40 Mg PO BID Ditropan (Oxybutynin Chloride) 5 Mg Tab 5 Mg PO Q12HR Meclizine (Meclizine HCl) 25 Mg Tab 25 Mg PO DIRECTED PRN Lisinopril 5 Mg Tab 5 Mg PO DAILY Levothyroxine (Levothyroxine Sodium) 100 Mcg Tab 100 Mcg PO DAILY Active Ordered Medications See MAR Family History Reviewed and found to be noncontributory to her acute illness Social History Denies EtOH, tobacco, drugs of abuse Physical Exam Vital Signs Vital Signs Date Time Temp Pulse Resp B/P (MAP) Pulse Ox O2 Delivery O2 Flow Rate FiO2 06/11/17 05:51 97.6 70 18 133/67 (89) 96 Physical Exam GENERAL: Elderly female, lying in bed, arousing from anesthesia HEENT: Normocephalic. Atraumatic. Pupils equal, round, reactive, conjugate. Mucous membranes are moist NECK: Trachea is midline. There is no JVD. Right IJ introducer sheath with transvenous pacer in place, dressing intact, site appears clean CHEST: Unlabored. Equal chest rise. CARDIOVASCULAR: Normal rate, regular rhythm. Sinus by telemetry. Not currently paced. Backup pacer is VVI rate of 50 ABDOMEN: Soft, nontender, nondistended. No guarding. MUSCULOSKELETAL: Pulses 2+. No peripheral edema. Distal pulses dopplerable bilaterally. Bilateral groin sites are clean, dry, dressings intact. No evidence hematoma NEUROLOGICAL: RASS -2. Arousing from anesthesia. Nonfocal. Moves all extremities. Laboratory Laboratory Tests Test 06/11/17 05:40 White Blood Count 5.0 Red Blood Count 4.10 Hemoglobin 12.0 Hematocrit 35.2 Mean Corpuscular Volume 85.8 Mean Corpuscular Hemoglobin 29.3 Mean Corpuscular Hemoglobin Concent 34.1 Red Cell Distribution Width 13.9 Platelet Count 135 Mean Platelet Volume 8.0 Neutrophils (%) (Auto) 52.9 Lymphocytes (%) (Auto) 29.2 Monocytes (%) (Auto) 12.4 Eosinophils (%) (Auto) 4.8 Basophils (%) (Auto) 0.7 Neutrophils # (Auto) 2.6 Lymphocytes # (Auto) 1.5 Monocytes # (Auto) 0.6 Eosinophils # (Auto) 0.2 Basophils # (Auto) 0.0 CBC Comment DIFF FINAL Differential Comment Prothrombin Time 13.2 Prothromb Time International Ratio 1.2 Activated Partial Thromboplast Time 30.3 Blood Urea Nitrogen 21 Creatinine 0.67 Random Glucose 95 Calcium Level 8.6 Sodium Level 142 Potassium Level 3.7 Chloride Level 109 Carbon Dioxide Level 25.8 Anion Gap 7 Estimat Glomerular Filtration Rate 84 Result Diagram: 06/11/1740 06/11/17 0540 Assessment and Plan Assessment and Plan Assessment: 86yF with htn, pvd, severe symptomatic aortic stenosis now POD 0 s/ p TAVR. Plan: s/p TAVR 06/11 with right iliac groin access - anticoagulation plan per Dr. marshall - frequent neurovascular checks - close uop monitoring - OOB after flat time. HTN - goal SBP < 180 - hold lisinopril tonight, plan to restart tomorrow Hyperlipidemia - restart home statin Hypothyroidism - restart synthroid Post-operative atelectasis - prn nebs - wean o2 by co for goal spo2 > 92% - aggressive pulmonary toilet. Could consider transitioning out of ICU if she remains pathway overnight. Code Status Full Code Discussed Condition With Dr. Marshall, Manish Becerra MD Jun 11, 2017 09:39
--- NOTE | 2017-06-11 09:44 | PD.PROCEDR ---
Procedure Note Procedure Procedure: Transesophageal Echocardiography Diagnosis: Severe aortic stenosis Indications: For perioperative planning for transcatheter aortic valve replacement Consent: Obtained Anesthesia: Gen. endotracheal anesthesia Description of the Procedure: The patient was sedated and mechanically ventilated. The echo probe was inserted easily and without resistance. At the conclusion of the procedure, the echo probe was removed. Please see detailed echocardiogram report for formal findings. Preliminary Findings (not confirmed): Pre-procedure: 1) Normal biventricular function 2) Severe aortic stenosis, valve area ~0.52 cm^2 3) trace aortic insufficiency 4) trace mitral regurgitation 5) no pericardial effusion 6) evidence of continuous [id number] intra-atrial shunting by color flow Doppler Post-procedure: 1) normal biventricular function 2) successful placement of transcatheter bioprosthetic aortic valve 3) no evidence of bioprosthetic valvular stenosis 4) trace perivalvular leak 5) no pericardial effusion The patient tolerated the procedure well with no hemodynamic instability or hypoxia. There were no immediate complications noted. I personally performed the procedure. Manish Quintanilla MD Jun 11, 2017 09:44
--- NOTE | 2017-06-11 09:54 | EKG ---
Date Performed: 06/11/2017 Time Performed: 06:13:34 PTAGE: 86 years EKG: Sinus rhythm with 1st degree A-V block. rSr'(V1) - probable normal variant Abnormal ECG PREVIOUS TRACING : 05/16/2017 09.16 DOCTOR: Luis Fernando Spear Interpretating Date/Time 06/11/2017 09:52:44
[2017-06-11] MEDS ORDERED: ONDANSETRON HCL 4 MG/2 ML VIAL IV PUSH PRN (10:00)
[2017-06-11] MEDS ORDERED: CLOPIDOGREL 300 MG TAB PO ONE (10:00)
[2017-06-11] MEDS ORDERED: ATROPINE SULFATE 1 MG/ML VIAL IV PUSH PRN (10:00)
[2017-06-11] MEDS ORDERED: MISC INFORMATION OTHER ONE (10:00)
[2017-06-11] MEDS ORDERED: ACETAMINOPHEN 325 MG TAB PO PRN (10:00)
[2017-06-11] MEDS ORDERED: DEXTROSE 50% IN WATER 50 ML VIAL(D50) IV PUSH PRN (10:00)
[2017-06-11] MEDS ORDERED: GLUCAGON 1 MG/ML VIAL OTHER PRN (10:00)
[2017-06-11] MEDS ORDERED: BUPIVACAINE HCL PF 0.25% 30 ML VIAL ONE (11:30)
[2017-06-11] MEDS: INSULIN NovoLIN REGULAR SUPPLEMENTAL SCALE SQ SCH ×2 (12:00→21:00)
[2017-06-11] MEDS ORDERED: MIDAZOLAM HCL 2 MG/2 ML VIAL IV ONE (12:00)
[2017-06-11] MEDS ORDERED: ceFAZolin INJ 1,000 MG VIAL IV ONE (12:00)
[2017-06-11] MEDS ORDERED: ePHEDrine/NS 25 MG/5 ML SYR IV ONE (12:00)
[2017-06-11] MEDS ORDERED: GLYCOPYRROLATE 1 MG/5 ML SYRINGE IV PUSH ONE (12:00)
[2017-06-11] MEDS ORDERED: ROCURONIUM INJ 50 MG/5 ML SYRINGE IV PUSH ONE (12:00)
[2017-06-11] MEDS ORDERED: PROPOFOL 200 MG/20 ML AMP IV ONE (12:00)
[2017-06-11] MEDS ORDERED: NEOSTIGMINE 3 MG/3 ML SYR IV ONE (12:00)
[2017-06-11] MEDS ORDERED: PHENYLEPH/NS 1000 MCG/10 ML SYR IV ONE (12:00)
[2017-06-11] MEDS ORDERED: ATROPINE SULFATE 1 MG/10 ML SYRINGE ONE (18:12)
[2017-06-11] MEDS ORDERED: EPINEPHrine HCL (1:10,000) 1 MG/10 ML SYRINGE ONE (18:12)
[2017-06-11] MEDS ORDERED: DEXAMETHASONE SOD PHOS 20 MG/5 ML VIAL ONE (18:21)
[2017-06-11] MEDS ORDERED: diphenhydrAMINE HCL 50 MG/ML VIAL ONE (18:21)
--- NOTE | 2017-06-11 18:51 | RADRPT ---
EXAM DATE/TIME: 06/11/2017 18:33 [facility] COMPARISON: CT BRAIN W/O CONTRAST, April 14, 2016, 21:09. INDICATIONS : Slurred speech with right arm numbness. RADIATION DOSE: 36.16 CTDIvol (mGy) MEDICAL HISTORY : Cardiovascular disease. Hypertension. SURGICAL HISTORY : Hysterectomy. ENCOUNTER: Initial ACUITY: 1 day PAIN SCALE: 0/10 LOCATION: cranial TECHNIQUE: Multiple contiguous axial images were obtained of the head. Using automated exposure control and adj ustment of the mA and/or kV according to patient size, radiation dose was kept as low as reasonably a chievable to obtain optimal diagnostic quality images. DICOM format image data is available electro nically for review and comparison. FINDINGS: CEREBRUM: The ventricles are normal for age. No evidence of midline shift, mass lesion, hemorrhage or acute in farction. No extra-axial fluid collections are seen. POSTERIOR FOSSA: The cerebellum and brainstem are intact. The 4th ventricle is midline. The cerebellopontine angle i s unremarkable. EXTRACRANIAL: The visualized portion of the orbits is intact. SKULL: The calvaria is intact. No evidence of skull fracture. CONCLUSION: No acute disease. Johnson Jimenez MD on June 11, 2017 at 18:49 Board Certified Radiologist. This report was verified electronically.
[2017-06-11] MEDS ORDERED: IOHEXOL 350 MG/ML 10 ML VIAL (for RAD DIAG) IVCONTRAST ONE (18:59)
--- NOTE | 2017-06-11 19:05 | RADRPT ---
EXAM DATE/TIME: 06/11/2017 18:36 This report includes an Addendum and supersedes previous reports for this exam. [facility] COMPARISON: No previous studies available for comparison. INDICATIONS : Slurred speech with right arm numbness. IV CONTRAST: 80 cc Omnipaque 350 (iohexol) IV ; Cumulative dose for multiple exams. RADIATION DOSE: 24.86 CTDIvol (mGy) ; Combined studies MEDICAL HISTORY : Cardiovascular disease. Hypertension. SURGICAL HISTORY : Hysterectomy. ENCOUNTER: Initial ACUITY: 1 day PAIN SCALE: 0/10 LOCATION: facial TECHNIQUE: Volumetric scanning was performed using a multi-row detector CT scanner. The data was post processed with a variety of visualization algorithms including full volume maximum intensity projection, multi -planar sliding thin slab reformation, curved planar reformation, and surface rendering techniques. Using automated exposure control and adjustment of the mA and/or kV according to patient size, radiat ion dose was kept as low as reasonably achievable to obtain optimal diagnostic quality images. DICO M format image data is available electronically for review and comparison. FINDINGS: There is excellent visualization of the major intracranial arteries out to the second-order branch ve ssels. There is no evidence for aneurysm and no evidence for vascular malformation. There is a short 2 mm focal area of decreased contrast seen in a branch of the distal left middle cer ebral artery seen in the posterior temporal lobe. Contrast is seen on either side at this area dimini shed enhancement. No other areas of focal stenosis are seen. The distal flow appears symmetric and no rmal. CONCLUSION: Short 2 mm area of focally decreased enhancement seen in a branch of the distal left middle cerebral artery territory in the posterior left temporal lobe. A focal stenosis or embolus could have this robby earance. Normal appearing flow is seen beyond this region. Johnson Jimenez MD on June 11, 2017 at 18:56 Board Certified Radiologist. This report was verified electronically. ADDENDUM: This information was relayed to Dr. Jackson by telephone. Johnson Jimenez MD on June 11, 2017 at 19:42 Board Certified Radiologist. This report was verified electronically.
[2017-06-11] MEDS ORDERED: DEXAMETHASONE SOD PHOS 4 MG/ML VIAL IV ONE (19:30)
[2017-06-11] MEDS ORDERED: diphenhydrAMINE HCL 50 MG/ML VIAL IV ONE (19:30)
--- NOTE | 2017-06-11 19:40 | RADRPT ---
EXAM DATE/TIME: 06/11/2017 18:36 [facility] COMPARISON: No previous studies available for comparison. INDICATIONS : Slurred speech with right arm numbness. IV CONTRAST: 80 cc Omnipaque 350 (iohexol) IV ; Cumulative dose for multiple exams. RADIATION DOSE: 24.86 CTDIvol (mGy) MEDICAL HISTORY : Cardiovascular disease. Hypertension. SURGICAL HISTORY : Hysterectomy. ENCOUNTER: Initial ACUITY: 1 day PAIN SCALE: 0/10 LOCATION: neck Elevated flow velocities and ICA/CCA ratios have been found to correlate with increased degrees of vessel stenosis, calculated as percentage of diameter relative to a normal segment of distal ICA/CCA. TECHNIQUE: Volumetric scanning was performed using a multirow detector CT scanner. The data was post processed with a variety of visualization algorithms including full-volume maximum intensity projection, multip lanar sliding thin-slab reformation, curved-planar reformation, and surface-rendering techniques. Us ing automated exposure control and adjustment of the mA and/or kV according to patient size, radiatio n dose was kept as low as reasonably achievable to obtain optimal diagnostic quality images. DICOM f ormat image data is available electronically for review and comparison. FINDINGS: AORTIC ARCH: The origins of the great vessels are not well seen on this examination secondary to streak artifact f rom contrast within the left innominate vein and SVC. RIGHT CAROTID: The common carotid artery is intact. There is moderate calcified plaque at the carotid bulb region. A significant stenosis is not seen. The internal carotid artery lumen is smooth without stenosis. The external carotid artery is intact. LEFT CAROTID: The common carotid artery is intact. There is moderate calcified plaque at the carotid bulb region. There is some mild soft plaque at the carotid bulb region. Significant stenosis is not clearly seen. The carotid bulb has a normal configuration without ulceration or narrowing. The internal carotid ar nasrin lumen is smooth without stenosis. The external carotid artery is intact. VERTEBRALS: The vertebral arteries have a symmetric diameter. No stenotic lesions are seen. CONCLUSION: Plaque at the carotid bulb regions without a definite significant stenosis seen. Johnson Jimenez MD on June 11, 2017 at 19:33 Board Certified Radiologist. This report was verified electronically.
[2017-06-11] MEDS: PRAVASTATIN SOD 80 MG TAB PO SCH (23:02)
[2017-06-11] MEDS: OXYBUTYNIN CHLORIDE 5 MG TAB PO SCH (23:02)
[2017-06-12] VITALS (12 sets, daily range): BP systolic 113–146; BP diastolic 40–62; PULSE 63–85; RESP 16–20; TEMP 97.7–99; O2SAT 93–99
[2017-06-12 05:01] LABS: HEMATOCRIT 30.4 % (35.0-46.0); MEAN CELL VOLUME 86.2 FL (80.0-100.0); MEAN CORPUSCULAR HEMOGLOBIN 29.2 PG (27.0-34.0); MEAN CORPUSCULAR HGB CONC 33.9 % (32.0-36.0); PLATELET COUNT 103 TH/MM3 (150-450); RED BLOOD COUNT 3.53 MIL/MM3 (4.00-5.30); RED CELL DISTRIBUTION WIDTH 14.2 % (11.6-17.2); REVIEW FLAG FINAL; WHITE BLOOD COUNT 6.3 TH/MM3 (4.0-11.0)
[2017-06-12 05:33] LABS: BICARBONATE 23.5 MEQ/L (21.0-32.0); POTASSIUM 3.8 MEQ/L (3.5-5.1)
[2017-06-12] MEDS: LEVOTHYROXINE SODIUM 100 MCG TAB PO SCH (06:15)
[2017-06-12] MEDS: INSULIN NovoLIN REGULAR SUPPLEMENTAL SCALE SQ SCH (08:00)
--- NOTE | 2017-06-12 08:12 | PD.CARD.PN ---
Subjective Subjective Remarks No CV complaints In chair Objective Medications Current Medications Medications (Trade) Dose Ordered Sig/Benjamin Route Start Time Stop Time Status Last Admin (Lopressor) 25 mg GRAIN BUYER PRN PO 06/11/17 06:00 06/14/17 05:59 (Betadine 5% Antisepsis Kit) 1 applic GRAIN BUYER PRN EACH NARE 06/11/17 06:00 06/14/17 05:59 (Chlorhexidine 2% Cloth) 3 pack GRAIN BUYER PRN TOPICAL 06/11/17 06:00 06/14/17 05:59 (NovoLIN R INJ) See Protocol Table ... GRAIN BUYER PRN SQ 06/11/17 06:00 06/14/17 05:59 Cefazolin Sodium/ Dextrose 50 ml @ 100 mls/hr GRAIN BUYER IV 06/11/17 06:00 06/14/17 05:59 06/11/17 07:30 (Synthroid) 100 mcg DAILY@0600 PO 06/12/17 06:00 06/12/17 06:15 (Pravachol) 80 mg HS PO 06/11/17 21:00 06/11/17 23:02 (Tylenol) 650 mg Q4H PRN PO 06/11/17 10:00 06/12/17 09:59 (Atropine Inj) 0.5 mg UNSCH PRN IV PUSH 06/11/17 10:00 06/12/17 09:59 (Aspirin Chew) 81 mg DAILY PO 06/12/17 09:00 (Plavix) 75 mg DAILY PO 06/12/17 09:00 (D50w (Vial) Inj) 50 ml UNSCH PRN IV PUSH 06/11/17 10:00 (Glucagon Inj) 1 mg UNSCH PRN OTHER 06/11/17 10:00 (NovoLIN R SUPPLEMENTAL SCALE) 1 ACHS SLIDING SCALE SQ 06/11/17 12:00 (Prinivil) 5 mg DAILY PO 06/12/17 09:00 (Ditropan) 5 mg Q12HR PO 06/11/17 21:00 06/11/17 23:02 Vital Signs / I&O Vital Signs Date Time Temp Pulse Resp B/P (MAP) Pulse Ox O2 Delivery O2 Flow Rate FiO2 06/12/17 04:00 77 06/12/17 04:00 82 06/12/17 04:00 97 Nasal Cannula 2.00 10/5/17 04:00 98.4 82 18 119/60 (79) 97 06/12/17 00:00 96 Nasal Cannula 2.00 06/12/17 00:00 77 06/12/17 00:00 77 06/12/17 00:00 99.0 77 16 146/62 (90) 96 122/40 (67) 06/11/17 21:26 97 Nasal Cannula 2.00 06/11/17 20:00 98.7 76 18 136/57 (83) 94 142/48 (79) 06/11/17 20:00 76 06/11/17 20:00 94 Nasal Cannula 2.00 06/11/17 20:00 76 06/11/17 18:00 95 Nasal Cannula 2.00 06/11/17 16:00 99.2 78 16 114/52 (72) 98 105/44 (64) 06/11/17 15:00 78 06/11/17 12:00 96.7 74 16 156/65 (95) 99 150/76 (100) 06/11/17 11:00 70 06/11/17 09:45 81 06/11/17 09:45 94.4 81 14 147/62 (90) 99 165/62 (96) I/O 06/11/17 06/11/17 06/11/17 06/12/17 06/12/17 06/12/17 06:59 14:59 22:59 06:59 14:59 22:59 Intake Total 1600 ml 1300 ml 480 ml Output Total 450 ml 725 ml 1260 ml Balance 1150 ml 575 ml -780 ml Intake Oral 300 ml 480 ml IV Total 1000 ml Other 1600 ml Output Urine Total 725 ml 1260 ml Other 450 ml # Bowel Movements 0 Physical Exam GENERAL: Well-nourished, well-developed patient. SKIN: Warm and dry. HEAD: Normocephalic. EYES: No scleral icterus. No injection or drainage. NECK: Supple, trachea midline. No JVD or lymphadenopathy. CARDIOVASCULAR: Regular rate and rhythm without murmurs, gallops, or rubs. RESPIRATORY: Breath sounds equal bilaterally. No accessory muscle use. GASTROINTESTINAL: Abdomen soft, non-tender, nondistended. EXTREMITIES: No cyanosis, or edema. NEUROLOGICAL: Awake, alert, and oriented x 3. Non-focal. Laboratory Laboratory Tests Test 06/12/17 04:30 White Blood Count 6.3 TH/MM3 Red Blood Count 3.53 MIL/MM3 Hemoglobin 10.3 GM/DL Hematocrit 30.4 % Mean Corpuscular Volume 86.2 FL Mean Corpuscular Hemoglobin 29.2 PG Mean Corpuscular Hemoglobin Concent 33.9 % Red Cell Distribution Width 14.2 % Platelet Count 103 TH/MM3 Mean Platelet Volume 8.3 FL Blood Urea Nitrogen 12 MG/DL Creatinine 0.54 MG/DL Random Glucose 125 MG/DL Calcium Level 8.1 MG/DL Sodium Level 141 MEQ/L Potassium Level 3.8 MEQ/L Chloride Level 108 MEQ/L Carbon Dioxide Level 23.5 MEQ/L Anion Gap 10 MEQ/L Estimat Glomerular Filtration Rate 108 ML/MIN Imaging Last Impressions Neck CTA 06/11/17 0000 Signed Impressions: Service Date/Time: Sunday, June 11, 2017 18:36 - CONCLUSION: Plaque at the carotid bulb regions without a definite significant stenosis seen. Johnson Jimenez MD Head CTA 06/11/17 0000 Signed Impressions: Service Date/Time: Sunday, June 11, 2017 18:36 - CONCLUSION: Short 2 mm area of focally decreased enhancement seen in a branch of the distal left middle cerebral artery territory in the posterior left temporal lobe. A focal stenosis or embolus could have this appearance. Normal appearing flow is seen beyond this region. Johnson Jimenez MD ADDENDUM: This information was relayed to Dr. Jackson by telephone. Johnson Jimenez MD Head CT 06/11/17 0000 Signed Impressions: Service Date/Time: Sunday, June 11, 2017 18:33 - CONCLUSION: No acute disease. Johnson Jimenez MD Assessment and Plan Problem List: (1) Aortic stenosis ICD Codes: I35.0 - Nonrheumatic aortic (valve) stenosis Plan: 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 Doing well this AM. No CV complaints. After procedure she had expressive aphasia due to Marcaine injection to the facial nerve, now resolved. NO FOCAL deficits, ambulating without difficulty. CT scan results noted. Acute on chronic diastolic HF on exam. Recommendations: 1. Lasix IV 10mg 2. d/c TPM 3. d/c IJ 4. d/c art line 5. PT/OT 6. Encourage incentive spirometry and ambulation. 7. Tx to stepdown 8. EP evaluation today 9. d/c dinh 10. Cont DAPT with ASA and Plavix (2) Hyperlipidemia ICD Codes: E78.5 - Hyperlipidemia, unspecified Status: Acute (3) Hypertension ICD Codes: I10 - Essential (primary) hypertension Status: Acute (4) Diastolic heart failure due to valvular disease ICD Codes: I50.30 - Unspecified diastolic (congestive) heart failure; I38 - Endocarditis, valve unspecified (5) Expressive dysphasia ICD Codes: R47.02 - Dysphasia Status: Acute Problem Qualifiers (1) Aortic stenosis: Qualified Codes: I35.0 - Nonrheumatic aortic (valve) stenosis Pk Ramos MD Jun 12, 2017 08:12
[2017-06-12] MEDS ORDERED: FUROSEMIDE 20 MG/2 ML VIAL IV PUSH ONE (08:15)
[2017-06-12] MEDS: OXYBUTYNIN CHLORIDE 5 MG TAB PO SCH ×2 (08:57→21:42)
[2017-06-12] MEDS: ASPIRIN 81 MG CHEW TAB PO SCH (08:57)
[2017-06-12] MEDS: CLOPIDOGREL 75 MG TAB PO SCH (08:57)
[2017-06-12] MEDS: LISINOPRIL 5 MG TAB PO SCH (08:58)
--- NOTE | 2017-06-12 10:05 | HHI.CCPN ---
Subjective Remarks/Hospital Course This is an 86-year-old female with a history of hypertension, hypothyroidism, hyperlipidemia, peripheral vascular disease, thrombocytopenia, and severe aortic stenosis who presents for elective percutaneous transcatheter aortic valve replacement. Her intraoperative procedure was uncomplicated through bilateral groin access. She arrives to the CVICU arousing from anesthesia in stable condition. No additional information is obtainable from the patient due to her arousing from anesthesia and somnolence. SUBJ 06/12: Hemodynamically stable sitting up in chair good peripheral pulses. No focal weakness. Mild expressive aphasia yesterday most likely related to Marcan injection. 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 This has resolved, CT head negative. CT angiogram of the brain discussed with Dr. Franklin. He does not see any evidence of embolus in L MCA and I concur. Objective Vital Signs Date Time Temp Pulse Resp B/P (MAP) Pulse Ox O2 Delivery O2 Flow Rate FiO2 06/12/17 07:30 Arterial Line 06/12/17 07:00 63 06/12/17 07:00 95 Room Air 06/12/17 07:00 97.9 18 06/12/17 04:00 2.00 Intake and Output 06/12/17 06/12/17 06/13/17 08:00 16:00 00:00 Intake Total 480 ml Output Total 1260 ml Balance -780 ml Result Diagram: 06/12/17 0430 06/12/17 0430 Objective Remarks GENERAL: Elderly female, lying in bed, up in chair in no distress HEENT: Normocephalic. Atraumatic. NECK: Trachea is midline. There is no JVD. Right IJ introducer sheath with transvenous pacer in place, dressing intact, site appears clean CHEST: Unlabored. Equal chest rise. CARDIOVASCULAR: Normal rate, regular rhythm. Sinus by telemetry. Not currently paced. ABDOMEN: Soft, nontender, nondistended. No guarding. MUSCULOSKELETAL: Pulses 2+. No peripheral edema. Bilateral groin sites are clean, dry, dressings intact. No evidence hematoma NEUROLOGICAL: Alert awake oriented 3. No focal deficits A/P Assessment and Plan Assessment: 86yF with htn, pvd, severe symptomatic aortic stenosis now POD 1 s/ p TAVR. Transient expressive aphasia due to marcan injection, resolved. 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 CT brain, CTA brain and neck resolved Plan: s/p TAVR 06/11 with right iliac groin access - DAPT with aspirin Plavix per Dr. johnson - frequent neurovascular checks - close uop monitoring - OOB HTN - Good blood pressure control Hyperlipidemia - Continue home statin Hypothyroidism -Continue synthroid Post-operative atelectasis - prn nebs - wean o2 by nc for goal spo2 > 92% - aggressive pulmonary toilet. Transfer to [facility], [facility] will follow while patient is in CV ICU D/ W Dr Johnson Level 2 Jessica Ornelas MD Jun 12, 2017 10:05
--- NOTE | 2017-06-12 14:52 | EKG ---
Date Performed: 06/12/2017 Time Performed: 04:45:56 PTAGE: 86 years EKG: Sinus rhythm with borderline 1st degree A-V block rSr'(V1) - probable normal variant Borderline ECG PREVIOUS TRACING : 06/11/2017 06.13 Compared to prior tracing no significant change DOCTOR: Italo Archibald Interpretating Date/Time 06/12/2017 14:51:00
--- NOTE | 2017-06-12 17:36 | PD.CAR.PN ---
CVT Progress Note Subjective/Hospital Course: 86/ female hx severe who presented for elective percutaneous transcatheter aortic valve replacement. Her intraoperative procedure was uncomplicated through bilateral groin access. PMH: of hypertension, hypothyroidism, hyperlipidemia, peripheral vascular disease, thrombocytopenia, surgery: 06/11Transcatheter aortic valve replacement with a 29 Corevalve Evolut tissue valve Balloon aortic valvuloplasty with a 22 True Balloon Percutaneous right femoral artery access with Perclose closure Percutaneous left femoral and vein access with Perclose closure of the artery 06/12 After procedure she had expressive aphasia due to Marcaine injection to the facial nerve, now resolved. NO FOCAL deficits pt doing well no c/o of chest pain or SOB stable for transfer to stepdown unit Objective: GENERAL: SKIN: Warm and dry. dressing intact right neck , both groins, right groin has some ecchymosis, no hematoma HEAD: Normocephalic. EYES: No scleral icterus. No injection or drainage. NECK: Supple, trachea midline. No JVD or lymphadenopathy. CARDIOVASCULAR: Regular rate and rhythm without , gallops, or rubs. soft SM , good distal pulses RESPIRATORY: Breath sounds equal bilaterally. No accessory muscle use. GASTROINTESTINAL: Abdomen soft, non-tender, nondistended. MUSCULOSKELETAL: No cyanosis, or edema. BACK: Nontender without obvious deformity. No CVA tenderness. Vital Signs Date Time Temp Pulse Resp B/P (MAP) Pulse Ox O2 Delivery O2 Flow Rate FiO2 06/12/17 15:21 97.7 81 18 133/60 (84) 99 06/12/17 15:19 98 Room Air 06/12/17 15:19 72 06/12/17 12:41 99 Room Air 06/12/17 12:41 97.9 69 18 120/55 (76) 99 06/12/17 11:20 67 06/12/17 07:30 Arterial Line 06/12/17 07:00 63 06/12/17 07:00 77 06/12/17 07:00 95 Room Air 06/12/17 07:00 97.9 63 18 113/55 (74) 93 Arterial Line 06/12/17 04:00 77 06/12/17 04:00 82 06/12/17 04:00 97 Nasal Cannula 2.00 06/12/17 04:00 98.4 82 18 119/60 (79) 97 06/12/17 00:00 96 Nasal Cannula 2.00 06/12/17 00:00 77 06/12/17 00:00 77 06/12/17 00:00 99.0 77 16 146/62 (90) 96 122/40 (67) 06/11/17 21:26 97 Nasal Cannula 2.00 06/11/17 20:00 98.7 76 18 136/57 (83) 94 142/48 (79) 06/11/17 20:00 76 06/11/17 20:00 94 Nasal Cannula 2.00 06/11/17 20:00 76 06/11/17 18:00 95 Nasal Cannula 2.00 Result Diagram: 06/12/1742906/12/17429 (1) Aortic stenosis Plan: 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 Doing well this AM. No CV complaints., ambulating without difficulty. CT scan results noted. Acute on chronic diastolic HF on exam. Recommendations: 1. Lasix IV 10mg temp pacer dc , IJ dc PT/OT OOB IS on ASA plavix will defer all orders and further follow up by Dr Johnson (2) Hyperlipidemia (3) Hypertension (4) Diastolic heart failure due to valvular disease (5) Expressive dysphasia Problem Qualifiers (1) Aortic stenosis: Qualified Codes: I35.0 - Nonrheumatic aortic (valve) stenosis Claudia Lord Jun 12, 2017 17:36
[2017-06-12] MEDS ORDERED: SODIUM CHLOR 0.9% 250 ML INJ 250 ML IV ONE (18:30)
--- NOTE | 2017-06-12 21:24 | MA ---
cc: PK SPICER DATE OF PROCEDURE 06/11/17 DATE OF 1930 PREPROCEDURE DIAGNOSIS -Severe symptomatic aortic stenosis, -Hypertension, -Hyperlipidemia, -PAD -Thrombocytopenia, -Earing Loss -Acute on chronic diastolic heart failure. POSTPROCEDURE DIAGNOSIS -Severe symptomatic aortic stenosis, -Hypertension, -Hyperlipidemia, -PAD -Thrombocytopenia, -Earing Loss -Acute on chronic diastolic heart failure. OPERATIVE PROCEDURE 1. Right transfemoral transcatheter aortic valve replacement with a 29mm Evolut Medtronic valve. 2. Balloon aortic valvuloplasty with a 22mm True balloon. 3. Aortic root angiogram. 4. Placement of a pigtail catheter for angiography. 5. Temporary pacemaker insertion. 6. Perclose right and left coronary femoral arteries. ANESTHESIA Dr. Flores SURGERIES Dr. Ivett Michel and Dr. Shyann Shafer DIE CASTING MACHINE OPERATOR/ WORKSHOP MANAGER Dr. Pk Spicer. GRADUATE ASSISTANT Dr. Luis Fernando Spear ECHO SUPPORT Dr. John Quintanilla INDICATION An 86-year-old female with severe symptomatic aortic stenosis with progressive symptom of heart failure and angina. The patient is being evaluated for aortic valve replacement and felt to be an intermediate risk for conventional aortic jalen replacement by Dr. Shafer and Dr. Michel on the basis of frailty STS score and comorbidities. She has been evaluated and accepted for transaortic valve replacement after extensive review of patient's chart and history. The risks of the procedure have been discussed with the patient at length and consents have been signed to proceed as planned. PROCEDURE DESCRIPTION Consent signed. The patient was prepped and draped in sterile fashion. The patient was brought into the cardiac labor relations director in fasting state. Under general anesthesia a transesophageal echocardiogram probe was placed in the esophagus and used throughout the procedure to evaluate aortic valve and other heart structures. REUBEN demonstrated severe aortic stenosis with a preserved ejection fraction. Using 1% lidocaine for local anesthesia and a micropuncture kit a left femoral artery and the left femoral vein entered percutaneously with a 6- [place] sheath and a 5-[place] sheaths respectively. The pigtail catheter was advanced over a J 0.035 wire and placed in the noncoronary cusp, followed by angiography in order to get multiple views for deployment of the valve. Then Using 1% lidocaine for local anesthesia a micropuncture kit, an 8 [place] sheath was inserted into the right common femoral artery. This was then followed by preclosing the artery with three Perclose devices. Heparin was given for anticoagulation. Then a 16Fr [place] sheath was inserted into the right common femoral artery through straight Stiff super core wire. Then we used an AL-1 over a straight ___ stiff Amplatz wire to cross the aortic valve with the tip left in the mid left ventricular cavity. This was followed by insertion of a 6- [place] angled pigtail. Wire was removed and Confida wire was inserted and left in the left ventricle. This was followed by insertion of a 22mm True balloon which was positioned in the aortic valve and inflated during rapid pacing. After BAV was performed we inserted the 29 mm aortic valve sheath left through the right groin. The valve then was positioned in the aortic valve and deployed under fluoroscopy and angiography. After confirmation of good position on the valve it was successfully deployed. Post deployment there were no signs of perivalvular leaks on REUBEN. The patient tolerated the procedure well without complications. The catheters were removed. We pullback the delivery system onto the ascending aorta which then was removed out of the body, then the delivery sheath was removed from the right femoral artery and a Perclose. Finally, the pigtail was removed and then the sheath of the left side were removed. This concluded the operation. Postoperative aortic valve area was 2.39 , the post implant mean gradient of 4. The post implant peak velocity 1.5. There was no aortic insufficiency or perivalvular leak. COMPLICATIONS None. DISPOSITION Admit to CV ICU in stable condition for post cath care. Continue dual antiplatelet agent with aspirin and Plavix. Early extubation, out of bed after bedrest. Temporary pacemaker will remain for the next 24 hours. Telemetry monitoring. EP consult per protocol. Resume home medications. MD CYRUS Patel/NALLELY /4:22 PM /8:47 PM ROLAND
[2017-06-12] MEDS: PRAVASTATIN SOD 80 MG TAB PO SCH (21:42)
[2017-06-13] VITALS (17 sets, daily range): BP systolic 88–123; BP diastolic 49–70; PULSE 71–80; RESP 18–20; TEMP 97.4–98.1; O2SAT 96–98
[2017-06-13] MEDS: LEVOTHYROXINE SODIUM 100 MCG TAB PO SCH (05:40)
--- NOTE | 2017-06-13 07:19 | HHI.DS ---
Discharge Summary Admission Date Jun 11, 2017 at 05:25 Discharge Date: Jun 13, 2017 Admitting Diagnosis Severe Aortic Stenosis with NYHA III symptoms (1) Aortic stenosis Diagnosis: Principal ICD Codes: I35.0 - Nonrheumatic aortic (valve) stenosis (2) Hyperlipidemia ICD Codes: E78.5 - Hyperlipidemia, unspecified Status: Acute (3) Hypertension ICD Codes: I10 - Essential (primary) hypertension Status: Acute (4) Diastolic heart failure due to valvular disease ICD Codes: I50.30 - Unspecified diastolic (congestive) heart failure; I38 - Endocarditis, valve unspecified Procedures Right TF TAVR Brief History 86 y/o F with severe symptomatic aortic stenosis admitted for elective percutaneous aortic valve replacement. Chronic diastolic Heart Failure CBC/BMP: 06/12/17 0430 06/12/17 0430 Significant Findings Laboratory Tests Test 06/11/17 05:40 06/12/17 04:30 Platelet Count 135 TH/MM3 (150-450) 103 TH/MM3 (150-450) Monocytes (%) (Auto) 12.4 % (0.0-8.0) Eosinophils (%) (Auto) 4.8 % (0.0-4.0) Prothrombin Time 13.2 SEC (9.8-11.6) Activated Partial Thromboplast Time 30.3 SEC (24.3-30.1) Blood Urea Nitrogen 21 MG/DL (7-18) Chloride Level 109 MEQ/L (98-107) 108 MEQ/L (98-107) Estimat Glomerular Filtration Rate 84 ML/MIN (>89) Red Blood Count 3.53 MIL/MM3 (4.00-5.30) Hemoglobin 10.3 GM/DL (11.6-15.3) Hematocrit 30.4 % (35.0-46.0) Random Glucose 125 MG/DL (74-106) Calcium Level 8.1 MG/DL (8.5-10.1) PE at Discharge GENERAL: Well-nourished, well-developed patient. SKIN: Warm and dry. HEAD: Normocephalic. EYES: No scleral icterus. No injection or drainage. NECK: Supple, trachea midline. No JVD or lymphadenopathy. CARDIOVASCULAR: Regular rate and rhythm without murmurs, gallops, or rubs. RESPIRATORY: Breath sounds equal bilaterally. No accessory muscle use. GASTROINTESTINAL: Abdomen soft, non-tender, nondistended. EXTREMITIES: No cyanosis, or edema. NEUROLOGICAL: Awake, alert, and oriented x 3. Non-focal. Hospital Course Ms. Mera underwent successful TAVR with a 29mm Evolut Medtronic Valve thru the Right TF. She underwent procedure well. Refer to procedure reports for details. After procedure she was transfer to the CVICU for post cath care. She was treated with IV Lasix for acute on chronic diastolic heart failure. She was evaluated by EP per protocol. She has no CV complaints, ambulating without difficulty. She is stable to be discharge home today. Pt Condition on Discharge: Good Discharge Disposition: Discharge Home Discharge Instructions DIET: Follow Instructions for: As Tolerated, No Restrictions Speech Therapy-Diet Recommenda: Regular New Medications: Aspirin (Aspirin Low Strength) 81 Mg Chew 81 MG PO DAILY for Chest Congestion/Cough for 30 Days, #30 EA Clopidogrel (Plavix) 75 Mg Tab 75 MG PO DAILY for Chest Congestion/Cough for 30 Days, #30 TAB Continued Medications: Levothyroxine (Levothyroxine) 100 Mcg Tab 100 MCG PO DAILY for Thyroid, #30 TAB 0 Refills Lisinopril (Lisinopril) 5 Mg Tab 5 MG PO DAILY for Blood Pressure Management, #30 TAB 0 Refills Meclizine (Meclizine) 25 Mg Tab 25 MG PO DIRECTED PRN for VERTIGO, TAB 0 Refills Oxybutynin (Ditropan) 5 Mg Tab 5 MG PO Q12HR for Urinary Symptom Managemen, #60 TAB 0 Refills Simvastatin (Simvastatin) 40 Mg Tab 40 MG PO BID for Cholesterol Management, #30 TAB 0 Refills Spironolactone (Spironolactone) 25 Mg Tab 25 MG PO DAILY, #30 TAB 0 Refills Temazepam (Temazepam) 15 Mg Cap 15 MG PO HS PRN for INSOMNIA, #30 CAP 0 Refills Discontinued Medications: Aspirin (Aspirin) 325 Mg Tab 325 MG PO DAILY, #30 TAB 0 Refills Pk Ramos MD Jun 13, 2017 07:19
[2017-06-13] MEDS ORDERED: PLAV75TA29 PO (07:23)
[2017-06-13] MEDS ORDERED: ASPI81CH25 PO (07:23)
[2017-06-13] MEDS: OXYBUTYNIN CHLORIDE 5 MG TAB PO SCH (08:30)
[2017-06-13] MEDS: LISINOPRIL 5 MG TAB PO SCH (08:30)
[2017-06-13] MEDS: CLOPIDOGREL 75 MG TAB PO SCH (08:30)
[2017-06-13] MEDS: ASPIRIN 81 MG CHEW TAB PO SCH (08:31)
--- NOTE | 2017-06-13 08:41 | PD.CARD.PN ---
Subjective Subjective Remarks no CV events voided last night 900cc ambulating without difficulty Objective Medications Current Medications Medications (Trade) Dose Ordered Sig/Benjamin Route Start Time Stop Time Status Last Admin (Lopressor) 25 mg [employer] PRN PO 06/11/17 06:00 06/14/17 05:59 (Betadine 5% Antisepsis Kit) 1 applic [employer] PRN EACH NARE 06/11/17 06:00 06/14/17 05:59 (Chlorhexidine 2% Cloth) 3 pack [employer] PRN TOPICAL 06/11/17 06:00 06/14/17 05:59 (NovoLIN R INJ) See Protocol Table ... [employer] PRN SQ 06/11/17 06:00 06/14/17 05:59 Cefazolin Sodium/ Dextrose 50 ml @ 100 mls/hr [employer] IV 06/11/17 06:00 06/14/17 05:59 06/11/17 07:30 (Synthroid) 100 mcg DAILY@0600 PO 06/12/17 06:00 06/13/17 05:40 (Pravachol) 80 mg HS PO 06/11/17 21:00 06/12/17 21:42 (Aspirin Chew) 81 mg DAILY PO 06/12/17 09:00 06/13/17 08:31 (Plavix) 75 mg DAILY PO 06/12/17 09:00 06/13/17 08:30 (Prinivil) 5 mg DAILY PO 06/12/17 09:00 06/13/17 08:30 (Ditropan) 5 mg Q12HR PO 06/11/17 21:00 06/13/17 08:30 Vital Signs / I&O Vital Signs Date Time Temp Pulse Resp B/P (MAP) Pulse Ox O2 Delivery O2 Flow Rate FiO2 06/13/17 06:08 74 06/13/17 05:00 73 06/13/17 04:00 74 06/13/17 03:50 97 Room Air 06/13/17 03:50 98.0 77 20 117/51 (73) 98 06/13/17 03:00 74 06/13/17 02:00 77 06/13/17 01:00 75 06/13/17 00:30 98.1 71 20 123/70 (87) 98 06/13/17 00:00 71 06/12/17 23:36 71 06/12/17 23:36 98 Room Air 06/12/17 22:00 79 06/12/17 21:00 83 06/12/17 20:00 98.1 83 20 128/60 (82) 99 06/12/17 20:00 85 06/12/17 20:00 99 Room Air 06/12/17 19:00 85 06/12/17 15:21 97.7 81 18 133/60 (84) 99 06/12/17 15:19 98 Room Air 06/12/17 15:19 72 06/12/17 12:41 99 Room Air 06/12/17 12:41 97.9 69 18 120/55 (76) 99 06/12/17 11:20 67 I/O 06/12/17 06/12/17 06/12/17 06/13/17 06/13/17 06/13/17 07:00 15:00 23:00 07:00 15:00 23:00 Intake Total 480 ml 970 ml 240 ml Output Total 1260 ml 450 ml 900 ml Balance -780 ml 520 ml -660 ml Intake Oral 480 ml 720 ml 240 ml IV Total 250 ml Output Urine Total 1260 ml 450 ml 900 ml Bladder Scan Volume Amount 327 ml # Bowel Movements 0 Physical Exam GENERAL: Well-nourished, well-developed patient. SKIN: Warm and dry. HEAD: Normocephalic. EYES: No scleral icterus. No injection or drainage. NECK: Supple, trachea midline. No JVD or lymphadenopathy. CARDIOVASCULAR: Regular rate and rhythm without murmurs, gallops, or rubs. RESPIRATORY: Breath sounds equal bilaterally. No accessory muscle use. GASTROINTESTINAL: Abdomen soft, non-tender, nondistended. EXTREMITIES: No cyanosis, or edema. NEUROLOGICAL: Awake, alert, and oriented x 3. Non-focal. Laboratory Current Medications Medications (Trade) Dose Ordered Sig/Benjamin Route Start Time Stop Time Status Last Admin (Lopressor) 25 mg [employer] PRN PO 06/11/17 06:00 06/14/17 05:59 (Betadine 5% Antisepsis Kit) 1 applic [employer] PRN EACH NARE 06/11/17 06:00 06/14/17 05:59 (Chlorhexidine 2% Cloth) 3 pack [employer] PRN TOPICAL 06/11/17 06:00 06/14/17 05:59 (NovoLIN R INJ) See Protocol Table ... [employer] PRN SQ 06/11/17 06:00 06/14/17 05:59 Cefazolin Sodium/ Dextrose 50 ml @ 100 mls/hr [employer] IV 06/11/17 06:00 06/14/17 05:59 06/11/17 07:30 (Synthroid) 100 mcg DAILY@0600 PO 06/12/17 06:00 06/13/17 05:40 (Pravachol) 80 mg HS PO 06/11/17 21:00 06/12/17 21:42 (Aspirin Chew) 81 mg DAILY PO 06/12/17 09:00 06/13/17 08:31 (Plavix) 75 mg DAILY PO 06/12/17 09:00 06/13/17 08:30 (Prinivil) 5 mg DAILY PO 06/12/17 09:00 06/13/17 08:30 (Ditropan) 5 mg Q12HR PO 06/11/17 21:00 06/13/17 08:30 Assessment and Plan Problem List: (1) Aortic stenosis ICD Codes: I35.0 - Nonrheumatic aortic (valve) stenosis Plan: 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 Doing well this AM. No CV complaints. After procedure she had expressive aphasia due to Marcaine injection to the facial nerve, now resolved. NO FOCAL deficits, ambulating without difficulty. CT scan results noted. Acute on chronic diastolic HF on exam. Recommendations: 1. PT/OT 2. Encourage incentive spirometry and ambulation. 3. Cont DAPT with ASA and Plavix 4. Stable to be D/C home today (2) Hyperlipidemia ICD Codes: E78.5 - Hyperlipidemia, unspecified Status: Acute (3) Hypertension ICD Codes: I10 - Essential (primary) hypertension Status: Acute (4) Diastolic heart failure due to valvular disease ICD Codes: I50.30 - Unspecified diastolic (congestive) heart failure; I38 - Endocarditis, valve unspecified (5) Expressive dysphasia ICD Codes: R47.02 - Dysphasia Status: Acute Problem Qualifiers (1) Aortic stenosis: Qualified Codes: I35.0 - Nonrheumatic aortic (valve) stenosis Pk Ramos MD Jun 13, 2017 08:41
--- NOTE | 2017-06-15 18:28 | MB ---
cc: RINKU NIEVES M.D. DATE OF CONSULTATION: 06/12/2017 REASON FOR CONSULTATION: Possible conduction disease, post TAVR. HISTORY OF PRESENT ILLNESS: Mrs. Mera is an 85-year-old female with history of high blood pressure, hyperlipidemia, peripheral vascular disease and thrombocytopenia with symptomatic aortic stenosis, normal ejection fraction with a mean gradient of who underwent on June 11, 2017 and aortic valvular replacement. Post hospitalization, the patient was doing very well. There is concern about possible conduction disease. I was consulted for further evaluation and management. I came to see the patient on the but the patient was having a head CT scan for some right-sided weakness. The chart was reviewed. The patient was evaluated. ALLERGIES: CODEINE. SOCIAL HISTORY: Negative for smoking and drinking. FAMILY HISTORY: Noncontributory to her current medical condition. MEDICATIONS: 1. Plavix. 2. Aspirin. 3. Zocor 40 milligrams twice a day. 4. Lisinopril 5 milligrams a day. 5. Aldactone 25 milligrams a day. 6. Aspirin. 7. Temazepam. 8. Meclizine. 9. Levoxyl. REVIEW OF SYSTEMS: She refers no chest pain. No chest discomfort. Some left-sided weakness. No fevers. PHYSICAL EXAMINATION: GENERAL: Alert, fully oriented. VITAL SIGNS: Her blood pressure on evaluation is 133/60, pulse 81, respiratory rate 18. LUNGS: Ventilated. CARDIOVASCULAR: S1-S2. No gallop. No murmur. ABDOMEN: Abdomen soft, no mass. No bruits. EXTREMITIES: No edema. NEUROLOGIC: As mentioned before, there is some weakness in the right hand. The patient is unable to write a note or hold a spoon. EKGS: Electrocardiogram shows sinus rhythm and no S-T and T wave changes. LABORATORY DATA: Hemoglobin is 10.3, white blood cell count 6.3. Potassium is 3.8, creatinine is 0.54. ASSESSMENT AND RECOMMENDATIONS: Mrs. Mera is currently stable. She is in sinus rhythm. No gross apical conduction disease. No AV block. At this point, my recommendation is to continue with current management. If there is any significant bradycardia or AV block observed, then further decision will be taken. At this point I will be available on a p.r.n. basis. MD INDIA Gaytan /4:54 PM /5:59 PM
== END 2017-06-13 12:35 | disposition home or self-care (01) | DRG 266 ==
LOC: UNDOADMIN 05:16 → HSDI 05:16 → HDIC 05:25 → HCVI 09:45 → HCPC 06-12 10:15
PROVIDERS: ADMIT Radiology Vascular & Interventional Radiology; ATTEND Radiology Vascular & Interventional Radiology
PROC: 5A1213Z Performance of Cardiac Pacing, Intermittent (ICD-10-PCS; 2017-06-11)
PROC: 02RF38Z Replacement of Aortic Valve with Zooplastic Tissue, Percutaneous Approach (ICD-10-PCS; principal; 2017-06-11 07:10)
PROC: B24BZZ4 Ultrasonography of Heart with Aorta, Transesophageal (ICD-10-PCS; 2017-06-11 07:10)
PROC: B310ZZZ Fluoroscopy of Thoracic Aorta (ICD-10-PCS; 2017-06-11 07:10)
DX: I35.0 Nonrheumatic aortic (valve) stenosis (principal); I50.33 Acute on chronic diastolic (congestive) heart failure; D69.6 Thrombocytopenia, unspecified; R47.01 Aphasia; I20.9 Angina pectoris, unspecified; J95.89 Other postprocedural complications and disorders of respiratory system, not elsewhere classified; J98.11 Atelectasis; I45.10 Unspecified right bundle-branch block; I73.9 Peripheral vascular disease, unspecified; I11.0 Hypertensive heart disease with heart failure; E78.5 Hyperlipidemia, unspecified; E03.9 Hypothyroidism, unspecified; T41.3X5A Adverse effect of local anesthetics, initial encounter; H91.90 Unspecified hearing loss, unspecified ear; Z88.5 Allergy status to narcotic agent
CPT/HCPCS: 33210; 33361; 70450; 70496; 70498; 80048; 82948; 85002; 85025; 85027; 85610; 85730; 86850; 86900; 86901; 86920; 93005; 94150; 94640; 94667; 94668; C1760; C1769; C1893; G0269; J0171; J0461; J0690; J1100; J1200; J1644; J1940; J2250; J2370; J2405; J2710; J2720; J3010; J7030; J7050; Q9967